=== PATIENT | female | born 1985 | race American Indian/Alaskan Native ===

== ENCOUNTER 2017-08-04 18:39 | Emergency (ER) | payer SELFPAY ==
[2017-08-04 18:51] VITALS: BP 127/70
--- NOTE | 2017-08-04 20:17 | Emergency Department Report ---
Abscess Boil HPI - HPI Chief Complaint: Skin/Abscess/Foreign Body Stated Complaint: LUMP UNDER BREAST Duration: >1 Week Location: Chest (under left breast on bra line) Severity: Moderate History: Yes Pain, No Fever, No Purulent Drainage, No Numbness, No Foreign Body , No Previous History, No Insect Bite HPI: 32-year-old Afro-[place] female comes in for complaint of a lump under her left breast rib area for about 2 months she reports that is progressively getting worse in the last week his Larger and more painful. Patient has not been taking any medication has no past medical history no known drug allergies. Home Medications: Previous Rx's Medication Instructions Recorded Last Taken Type metroNIDAZOLE [Flagyl] 500 mg PO Q12HR #14 tab 02/20/16 Unknown Rx Cephalexin [Keflex] 500 mg PO BID 10 Days #20 capsule 08/04/17 Unknown Rx Ibuprofen 800 mg PO Q8H #30 tablet 08/04/17 Unknown Rx Allergies/Adverse Reactions: Allergies Allergy/AdvReac Type Severity Reaction Status Date / Time No Known Allergies Allergy Verified 08/04/17 18:49 ED Review of Systems ROS: Stated complaint: LUMP UNDER BREAST Other details as noted in HPI Constitutional: denies: chills, fever Eyes: denies: eye pain, eye discharge, vision change ENT: denies: ear pain, throat pain Respiratory: denies: cough, shortness of breath, wheezing Cardiovascular: denies: chest pain, palpitations Endocrine: no symptoms reported Gastrointestinal: denies: abdominal pain, nausea, diarrhea Genitourinary: denies: urgency, dysuria, discharge Musculoskeletal: denies: back pain, joint swelling, arthralgia Skin: lesions Neurological: denies: headache, weakness, paresthesias Psychiatric: denies: anxiety, depression Hematological/Lymphatic: denies: easy bleeding, easy bruising ED Past Medical Hx - Past Medical History Previous Medical History?: No - Surgical History Hx Cholecystectomy: Yes Additional Surgical History: - Social History Smoking Status: Never Smoker Substance Use Type: None - Medications Home Medications: Home Medications Medication Instructions Recorded Confirmed Last Taken Type metroNIDAZOLE [Flagyl] 500 mg PO Q12HR #14 tab 02/20/16 Unknown Rx Cephalexin [Keflex] 500 mg PO BID 10 Days #20 capsule 08/04/17 Unknown Rx Ibuprofen 800 mg PO Q8H #30 tablet 08/04/17 Unknown Rx ED Abscess Boil Physical Exam - Exam General: Vital signs noted. No distress. Alert and acting appropriately. Size: 2 cm Exam: Yes Tenderness, Yes Normal Neurologic Exam, Yes Normal Circulation, No Fluctuance, No Surrounding Cellulites/Erythema, No Lymphangitis, No Crepitation , No Heart Murmur ED Course Vital Signs 08/04/17 18:49 Temperature 98.1 F Pulse Rate 61 Respiratory 18 Rate Blood Pressure 127/70 O2 Sat by Pulse 96 Oximetry Critical care attestation.: If time is entered above; I have spent that time in minutes in the direct care of this critically ill patient, excluding procedure time. ED Medical Decision Making - Medical Decision Making Patient has been evaluated by this provider fast track. Discussed the patient that it appears to be an abscess but not ready to be incision and drained at this time. Discussed the patient to place warm compresses every 20 minutes of every hour period and take antibiotics as prescribed. Follow up with her primary care provider or emergency room if abscess gets worse. Patient verbalized understanding ED Disposition Clinical Impression: Abscess Disposition: DC-01 TO HOME OR SELFCARE Is pt being admited?: No Does the pt Need Aspirin: No Condition: Stable Instructions: Abscess (ED) Additional Instructions: The antibiotics as prescribed take pain medication as needed follow-up which her primary care provider. Prescriptions: Cephalexin [Keflex] 500 mg PO BID 10 Days #20 capsule Ibuprofen 800 mg PO Q8H #30 tablet Referrals: LEWIS WISE MD [Primary Care Provider] - 3-5 Days Forms: Work/School Release Form(ED)
== END 2017-08-04 20:32 | disposition home or self-care (01) ==
LOC: ED 18:39
DX: L02.213 Cutaneous abscess of chest wall (principal)
CPT/HCPCS: 99282

== ENCOUNTER 2017-08-12 19:13 | Emergency (ER) | payer SELFPAY ==
[2017-08-12 19:49] VITALS: BP 116/66
--- NOTE | 2017-08-12 23:15 | Emergency Department Report ---
- General Chief complaint: Skin/Abscess/Foreign Body Stated complaint: PAIN ON SIDE/ABSCESS Time Seen by Provider: 08/12/17 22:14 Source: patient Mode of arrival: Ambulatory Limitations: No Limitations - History of Present Illness Initial comments: 32-year-old female past medical history none presents with complaint of infected cyst in the left breast. Has been ongoing for approximately 3-4 days. Small approximately the size of an acorn as per patient. Denies fevers or chills. Patient awake alert and oriented 3. Does not involve the breast as per patient MD complaint: abscess/boil Onset/Timin -: days(s) Tetanus Up to Date: yes Severity: moderate Severity scale (0 -10): 5 Quality: aching Consistency: intermittent Worsens with: none Context: none Associated symptoms: denies other symptoms Treatments Prior to Arrival: none - Related Data Previous Rx's Medication Instructions Recorded Last Taken Type metroNIDAZOLE [Flagyl] 500 mg PO Q12HR #14 tab 02/20/16 Unknown Rx Cephalexin [Keflex] 500 mg PO BID 10 Days #20 capsule 08/04/17 Unknown Rx Ibuprofen 800 mg PO Q8H #30 tablet 08/04/17 Unknown Rx Cephalexin [Keflex] 500 mg PO Q12HR #14 cap 08/12/17 Unknown Rx Ibuprofen [Motrin] 600 mg PO Q8H PRN #30 tablet 08/12/17 Unknown Rx Sulfamethoxazole/Trimethoprim 1 each PO BID #14 tablet 08/12/17 Unknown Rx [Bactrim DS TAB] Allergies Allergy/AdvReac Type Severity Reaction Status Date / Time No Known Allergies Allergy Verified 08/04/17 18:49 Abscess Boil HPI - HPI Chief Complaint: Skin/Abscess/Foreign Body Stated Complaint: PAIN ON SIDE/ABSCESS Time Seen by Provider: 08/12/17 22:14 Home Medications: Previous Rx's Medication Instructions Recorded Last Taken Type metroNIDAZOLE [Flagyl] 500 mg PO Q12HR #14 tab 02/20/16 Unknown Rx Cephalexin [Keflex] 500 mg PO BID 10 Days #20 capsule 08/04/17 Unknown Rx Ibuprofen 800 mg PO Q8H #30 tablet 08/04/17 Unknown Rx Cephalexin [Keflex] 500 mg PO Q12HR #14 cap 08/12/17 Unknown Rx Ibuprofen [Motrin] 600 mg PO Q8H PRN #30 tablet 08/12/17 Unknown Rx Sulfamethoxazole/Trimethoprim 1 each PO BID #14 tablet 08/12/17 Unknown Rx [Bactrim DS TAB] Allergies/Adverse Reactions: Allergies Allergy/AdvReac Type Severity Reaction Status Date / Time No Known Allergies Allergy Verified 08/04/17 18:49 ED Review of Systems ROS: Stated complaint: PAIN ON SIDE/ABSCESS Other details as noted in HPI Constitutional: denies: chills, fever Eyes: denies: eye pain, eye discharge, vision change ENT: denies: ear pain, throat pain Respiratory: denies: cough, shortness of breath, wheezing Cardiovascular: denies: chest pain, palpitations Endocrine: no symptoms reported Gastrointestinal: denies: abdominal pain, nausea, diarrhea Genitourinary: denies: urgency, dysuria, discharge Musculoskeletal: denies: back pain, joint swelling, arthralgia Skin: as per HPI. denies: rash, lesions Neurological: denies: headache, weakness, paresthesias Psychiatric: denies: anxiety, depression Hematological/Lymphatic: denies: easy bleeding, easy bruising ED Past Medical Hx - Past Medical History Previous Medical History?: No - Surgical History Hx Cholecystectomy: Yes Additional Surgical History: - Social History Smoking Status: Current Every Day Smoker Substance Use Type: Alcohol - Medications Home Medications: Home Medications Medication Instructions Recorded Confirmed Last Taken Type metroNIDAZOLE [Flagyl] 500 mg PO Q12HR #14 tab 02/20/16 Unknown Rx Cephalexin [Keflex] 500 mg PO BID 10 Days #20 capsule 08/04/17 Unknown Rx Ibuprofen 800 mg PO Q8H #30 tablet 08/04/17 Unknown Rx Cephalexin [Keflex] 500 mg PO Q12HR #14 cap 08/12/17 Unknown Rx Ibuprofen [Motrin] 600 mg PO Q8H PRN #30 tablet 08/12/17 Unknown Rx Sulfamethoxazole/Trimethoprim 1 each PO BID #14 tablet 08/12/17 Unknown Rx [Bactrim DS TAB] ED Physical Exam - General Limitations: No Limitations General appearance: alert, in no apparent distress - Head Head exam: Present: atraumatic, normocephalic - Eye Eye exam: Present: normal appearance, PERRL, EOMI - ENT ENT exam: Present: mucous membranes moist - Neck Neck exam: Present: normal inspection - Respiratory Respiratory exam: Present: normal lung sounds bilaterally. Absent: respiratory distress - Cardiovascular Cardiovascular Exam: Present: regular rate, normal rhythm. Absent: systolic murmur, diastolic murmur, rubs, gallop - GI/Abdominal GI/Abdominal exam: Present: soft, normal bowel sounds - Extremities Exam Extremities exam: Present: normal inspection - Back Exam Back exam: Present: normal inspection - Neurological Exam Neurological exam: Present: alert, oriented X3, CN II-XII intact, normal gait - Psychiatric Psychiatric exam: Present: normal affect, normal mood - Skin Skin exam: Present: warm, dry, intact, normal color. Absent: rash - Expanded Skin Exam Expanded Type of lesion: Present: abscess Distribution of rash: thorax Description of rash: Present: size (3 cm diameter) 1 - Small abscess here ED Course Vital Signs 08/12/17 19:45 Temperature 98.6 F Pulse Rate 67 Respiratory 16 Rate Blood Pressure 116/66 O2 Sat by Pulse 100 Oximetry - I & D Anterior Chest Type of Procedure: Simple Site: left anterior upper thorax Blade Size: 11 I & D Procedure: betadine prep Progress: Area is infiltrated with lidocaine 2% without epinephrine. Good local anesthesia achieved. Single horizontal stab incision made. Tiny amount of purulent drainage with sebaceous material. Significant decompression achieved. 2 inches of iodoform gauze placed in wound after irrigation and probing. Procedure tolerated well with minimal bleeding. Covered with 4 x 4 gauze afterward. ED Medical Decision Making - Medical Decision Making A/P: Abscess, infected sebaceous cyst 1-incised and drained, wound culture sent. No clinical involvement of breast upon examination, abscess is overlying ribs below breast left upper quadrant 2-Bactrim and Keflex twice a day 7 days, short course of analgesics 3-I advised patient to return to the ED for any fevers or chills or reaccumulation of abscess 4- follow-up with primary care and dermatology Critical care attestation.: If time is entered above; I have spent that time in minutes in the direct care of this critically ill patient, excluding procedure time. ED Disposition Clinical Impression: Abscess, Infected sebaceous cyst Disposition: [id number]/TX-[id number] PS[facility] HOSP/PSY UNIT Is pt being admited?: No Does the pt Need Aspirin: No Condition: Stable Instructions: Abscess (ED), Abscess Incision and Drainage (ED) Prescriptions: Cephalexin [Keflex] 500 mg PO Q12HR #14 cap Ibuprofen [Motrin] 600 mg PO Q8H PRN #30 tablet PRN Reason: Pain Sulfamethoxazole/Trimethoprim [Bactrim DS TAB] 1 each PO BID #14 tablet Referrals: [facility] [Provider Group] - 3-5 Days Forms: Accompanied Note, Work/School Release Form(ED) Time of Disposition: 23:55
== END 2017-08-13 00:24 ==
LOC: ED 19:13
DX: L02.213 Cutaneous abscess of chest wall (principal); L72.3 Sebaceous cyst

== ENCOUNTER 2020-05-01 05:57 | Emergency (ER) | payer BC ==
[2020-05-01] MEDS ORDERED: SODIUM CHLORIDE 0.9% 1000 ML 1,000 ML IV ONE (06:23)
[2020-05-01] MEDS ORDERED: ONDANSETRON 4 MG/2 ML INJ IV ONE (06:23)
[2020-05-01 06:24] LABS: Bilirubin,Urine NEG (Negative); Blood,Urine SM (Negative); Color,Urine Yellow (Yellow); Mucus,Urine FEW /HPF; Protein,Urine <15 mg/dL mg/dL (Negative); RBC,Urine < 1.0 /HPF (0.0-6.0)
[2020-05-01 06:32] LABS: Hematocrit 40.4 % (30.3-42.9); Hemoglobin 13.5 gm/dl (10.1-14.3); Mean Corpuscular HGB Conc 34 % (30-34); Mean Corpuscular Volume 99 fl (79-97); Platelet Count 223 K/mm3 (140-440); Red Blood Count 4.06 M/mm3 (3.65-5.03); Red Cell Distribution Width 13.8 % (13.2-15.2)
[2020-05-01 06:45] LABS: Alanine Aminotransferase 13 units/L (7-56); Albumin 3.6 g/dL (3.9-5); Blood Urea Nitrogen 11 mg/dL (7-17); Calcium 8.8 mg/dL (8.4-10.2); Hemolysis Index 16
[2020-05-01 06:46] LABS: BUN/Creatinine Ratio 18
--- NOTE | 2020-05-01 06:51 | Emergency Department Report ---
HPI - General Chief Complaint: Abdominal Pain Time Seen by Provider: 05/01/20 06:46 - HPI HPI: This is a 35-year-old female presents to the emergency department with complaint of right-sided abdominal and right flank pain that is been going on for the past week but has greatly worsened over the last few days. She denies any nausea, vomiting, fever, vaginal bleeding or discharge, dysuria, diarrhea or constipation. Patient has been taking some [place] for her pain without much relief. Currently she is 8 out of 10 in intensity. It is a sharp pain. No known aggravating or alleviating factors. She does not have a primary care physician. No recent travel or sick contacts at home. She has a previous surgical history of a cholecystectomy and . ED Past Medical Hx - Past Medical History Previous Medical History?: No - Surgical History Past Surgical History?: Yes Hx Cholecystectomy: Yes Additional Surgical History: - Social History Smoking Status: Current Every Day Smoker Substance Use Type: None - Medications Home Medications: Home Medications Medication Instructions Recorded Confirmed Last Taken Type metroNIDAZOLE [Flagyl] 500 mg PO Q12HR #14 tab 02/20/16 Unknown Rx Cephalexin [Keflex] 500 mg PO BID 10 Days #20 capsule 08/04/17 Unknown Rx Ibuprofen [Ibuprofen 800] 800 mg PO Q8H #30 tablet 08/04/17 Unknown Rx Ibuprofen [Motrin] 600 mg PO Q8H PRN #30 tablet 08/12/17 Unknown Rx Sulfamethoxazole/Trimethoprim 1 each PO BID #14 tablet 08/12/17 Unknown Rx [Bactrim DS TAB] cephALEXin [Keflex] 500 mg PO Q12HR #14 cap 08/12/17 Unknown Rx DOXYCYCLINE Hyclate [Vibramycin 100 mg PO Q12HR #20 capsule 05/01/20 Unknown Rx CAP] HYDROcodone/APAP 5-325 [[place] 1 each PO Q6HR PRN #12 tablet 05/01/20 Unknown Rx 5/325] ED Review of Systems ROS: Stated complaint: STOMACH/SIDE PAIN Other details as noted in HPI Comment: All other systems reviewed and negative Constitutional: denies: chills, fever Eyes: denies: eye pain, vision change ENT: denies: ear pain, throat pain Respiratory: denies: cough, shortness of breath Cardiovascular: denies: chest pain, palpitations Gastrointestinal: abdominal pain. denies: nausea, vomiting Genitourinary: denies: dysuria, discharge Musculoskeletal: denies: back pain, arthralgia Skin: denies: rash, lesions Neurological: denies: headache, weakness Physical Exam - Physical Exam Vital Signs: Vital Signs 05/01/20 06:01 Temperature 98.3 F Pulse Rate 95 H Respiratory 18 Rate Blood Pressure 133/83 O2 Sat by Pulse 96 Oximetry Physical Exam: GENERAL: The patient is well-developed well-nourished. HENT: Normocephalic. Atraumatic. Patient has moist mucous membranes. EYES: Extraocular motions are intact. NECK: Supple. Trachea is midline. CHEST/LUNGS: Clear to auscultation. There is no respiratory distress noted. HEART/CARDIOVASCULAR: Regular. There is no tachycardia. ABDOMEN: Abdomen is soft. Right middle and lower quadrant is tender to palpation. No guarding. Patient has normal bowel sounds. There is no abdominal distention. SKIN: Skin is warm and dry. NEURO: The patient is awake, alert, and oriented. The patient is cooperative. The patient has no focal neurologic deficits. Normal speech. MUSCULOSKELETAL: There is no tenderness or deformity. There is no limitation range of motion. BACK: No CVA tenderness to palpation. ED Course Vital Signs 05/01/20 06:01 Temperature 98.3 F Pulse Rate 95 H Respiratory 18 Rate Blood Pressure 133/83 O2 Sat by Pulse 96 Oximetry - Reevaluation(s) Reevaluation #1: 05/01/20 12:57 Lab Results 05/01/20 05/01/20 05/01/20 Range/Units 06:00 06:00 06:14 WBC 22.0 H (4.5-11.0) K/mm3 RBC 4.06 (3.65-5.03) M/mm3 Hgb 13.5 (10.1-14.3) gm/dl Hct 40.4 (30.3-42.9) % MCV 99 H (79-97) fl MCH 33 H (28-32) pg MCHC 34 (30-34) % RDW 13.8 (13.2-15.2) % Plt Count 223 (140-440) K/mm3 Add Manual Diff Complete Total Counted 100 Seg Neuts % (Manual) 81.0 H (40.0-70.0) % Band Neutrophils % 3.0 % Lymphocytes % (Manual) 7.0 L (13.4-35.0) % Reactive Lymphs % (Man) 0 % Monocytes % (Manual) 9.0 H (0.0-7.3) % Eosinophils % (Manual) 0 (0.0-4.3) % Basophils % (Manual) 0 (0.0-1.8) % Metamyelocytes % 0 % Myelocytes % 0 % Promyelocytes % 0 % Blast Cells % 0 % Nucleated RBC % Not Reportable Seg Neutrophils # Man 17.8 H (1.8-7.7) K/mm3 Band Neutrophils # 0.7 K/mm3 Lymphocytes # (Manual) 1.5 (1.2-5.4) K/mm3 Abs React Lymphs (Man) 0.0 K/mm3 Monocytes # (Manual) 2.0 H (0.0-0.8) K/mm3 Eosinophils # (Manual) 0.0 (0.0-0.4) K/mm3 Basophils # (Manual) 0.0 (0.0-0.1) K/mm3 Metamyelocytes # 0.0 K/mm3 Myelocytes # 0.0 K/mm3 Promyelocytes # 0.0 K/mm3 Blast Cells # 0.0 K/mm3 WBC Morphology Not Reportable Hypersegmented Neuts Not Reportable Hyposegmented Neuts Not Reportable Hypogranular Neuts Not Reportable Smudge Cells Not Reportable Toxic Granulation Not Reportable Toxic Vacuolation Not Reportable Dohle Bodies Not Reportable Pelger-Huet Anomaly Not Reportable Ronnie Rods Not Reportable Platelet Estimate R Clumped Platelets Not Reportable Plt Clumps, EDTA Not Reportable Large Platelets Not Reportable Giant Platelets Not Reportable Platelet Satelliting Not Reportable Plt Morphology Comment Not Reportable RBC Morphology Normal Dimorphic RBCs Not Reportable Polychromasia Not Reportable Hypochromasia Not Reportable Poikilocytosis Not Reportable Anisocytosis Not Reportable Microcytosis Not Reportable Macrocytosis Not Reportable Spherocytes Not Reportable Pappenheimer Bodies Not Reportable Sickle Cells Not Reportable Target Cells Not Reportable Tear Drop Cells Not Reportable Ovalocytes Not Reportable Helmet Cells Not Reportable Gerard-[place] Bodies Not Reportable [place] Rings Not Reportable [place] Cells Not Reportable Bite Cells Not Reportable Crenated Cell Not Reportable Elliptocytes Not Reportable Acanthocytes (Spur) Not Reportable Rouleaux Not Reportable Hemoglobin C Crystals Not Reportable Schistocytes Not Reportable Malaria parasites Not Reportable Evangelista Bodies Not Reportable Hem Pathologist Commnt No Sodium 136 L (137-145) mmol/L Potassium 4.1 (3.6-5.0) mmol/L Chloride 100.1 (98-107) mmol/L Carbon Dioxide 23 (22-30) mmol/L Anion Gap 17 mmol/L BUN 11 (7-17) mg/dL Creatinine 0.6 (0.6-1.2) mg/dL Estimated GFR > 60 ml/min BUN/Creatinine Ratio 18 % Glucose 118 H (65-100) mg/dL Calcium 8.8 (8.4-10.2) mg/dL Total Bilirubin 0.40 (0.1-1.2) mg/dL AST 13 (5-40) units/L ALT 13 (7-56) units/L Alkaline Phosphatase 76 (35-129) units/L Total Protein 7.1 (6.3-8.2) g/dL Albumin 3.6 L (3.9-5) g/dL Albumin/Globulin Ratio 1.0 % HCG, Qual (Negative) Urine Color Yellow (Yellow) Urine Turbidity Clear (Clear) Urine pH 9.0 H (5.0-7.0) Ur Specific [place] 1.021 (1.003-1.030) Urine Protein <15 mg/dl (Negative) mg/dL Urine Glucose (UA) Neg (Negative) mg/dL Urine Ketones Neg (Negative) mg/dL Urine Blood Sm (Negative) Urine Nitrite Neg (Negative) Urine Bilirubin Neg (Negative) Urine Urobilinogen 2.0 (<2.0) mg/dL Ur Leukocyte Esterase Tr (Negative) Urine WBC (Auto) 2.0 (0.0-6.0) /HPF Urine RBC (Auto) < 1.0 (0.0-6.0) /HPF U Epithel Cells (Auto) 1.0 (0-13.0) /HPF Urine Mucus Few /HPF 10/30/20 Range/Units Unknown WBC (4.5-11.0) K/mm3 RBC (3.65-5.03) M/mm3 Hgb (10.1-14.3) gm/dl Hct (30.3-42.9) % MCV (79-97) fl MCH (28-32) pg MCHC (30-34) % RDW (13.2-15.2) % Plt Count (140-440) K/mm3 Add Manual Diff Total Counted Seg Neuts % (Manual) (40.0-70.0) % Band Neutrophils % % Lymphocytes % (Manual) (13.4-35.0) % Reactive Lymphs % (Man) % Monocytes % (Manual) (0.0-7.3) % Eosinophils % (Manual) (0.0-4.3) % Basophils % (Manual) (0.0-1.8) % Metamyelocytes % % Myelocytes % % Promyelocytes % % Blast Cells % % Nucleated RBC % Seg Neutrophils # Man (1.8-7.7) K/mm3 Band Neutrophils # K/mm3 Lymphocytes # (Manual) (1.2-5.4) K/mm3 Abs React Lymphs (Man) K/mm3 Monocytes # (Manual) (0.0-0.8) K/mm3 Eosinophils # (Manual) (0.0-0.4) K/mm3 Basophils # (Manual) (0.0-0.1) K/mm3 Metamyelocytes # K/mm3 Myelocytes # K/mm3 Promyelocytes # K/mm3 Blast Cells # K/mm3 WBC Morphology Hypersegmented Neuts Hyposegmented Neuts Hypogranular Neuts Smudge Cells Toxic Granulation Toxic Vacuolation Dohle Bodies Pelger-Huet Anomaly Ronnie Rods Platelet Estimate Clumped Platelets Plt Clumps, EDTA Large Platelets Giant Platelets Platelet Satelliting Plt Morphology Comment RBC Morphology Dimorphic RBCs Polychromasia Hypochromasia Poikilocytosis Anisocytosis Microcytosis Macrocytosis Spherocytes Pappenheimer Bodies Sickle Cells Target Cells Tear Drop Cells Ovalocytes Helmet Cells Gerard-[place] Bodies [place] Rings [place] Cells Bite Cells Crenated Cell Elliptocytes Acanthocytes (Spur) Rouleaux Hemoglobin C Crystals Schistocytes Malaria parasites Evangelista Bodies Hem Pathologist Commnt Sodium (137-145) mmol/L Potassium (3.6-5.0) mmol/L Chloride (98-107) mmol/L Carbon Dioxide (22-30) mmol/L Anion Gap mmol/L BUN (7-17) mg/dL Creatinine (0.6-1.2) mg/dL Estimated GFR ml/min BUN/Creatinine Ratio % Glucose (65-100) mg/dL Calcium (8.4-10.2) mg/dL Total Bilirubin (0.1-1.2) mg/dL AST (5-40) units/L ALT (7-56) units/L Alkaline Phosphatase (35-129) units/L Total Protein (6.3-8.2) g/dL Albumin (3.9-5) g/dL Albumin/Globulin Ratio % HCG, Qual Negative (Negative) Urine Color (Yellow) Urine Turbidity (Clear) Urine pH (5.0-7.0) Ur Specific [place] (1.003-1.030) Urine Protein (Negative) mg/dL Urine Glucose (UA) (Negative) mg/dL Urine Ketones (Negative) mg/dL Urine Blood (Negative) Urine Nitrite (Negative) Urine Bilirubin (Negative) Urine Urobilinogen (<2.0) mg/dL Ur Leukocyte Esterase (Negative) Urine WBC (Auto) (0.0-6.0) /HPF Urine RBC (Auto) (0.0-6.0) /HPF U Epithel Cells (Auto) (0-13.0) /HPF Urine Mucus /HPF ED Medical Decision Making - Lab Data Result diagrams: 05/01/20 06:00 05/01/20 06:00 - Radiology Data Radiology results: report reviewed ULTRASOUND PELVIS DUPLEX DOPPLER COMPLETE INDICATION / CLINICAL INFORMATION: pelvic pain. TECHNIQUE: Transabdominal. Duplex Color Doppler used: Yes. MELISSA RISON: CT abdomen pelvis with contrast performed earlier today FINDINGS: The uterus is anteverted measuring 9.6 x 4.9 x 4.3 cm. No uterine mass. The endometrial stripe is homogeneous and measures 4-5 mm in thickness. The left ovary is normal size, contour and echotexture measuring 3.1 x 2.6 x 1.8 cm. Normal flow on spectral Doppler imaging. I do not clearly see a normal-appearing right ovary containing follicles. There is a complex right adnexal masslike lesion with minimal cystic change measuring 6.0 x 4.0 x 4.0 cm. When correlating with CT, there is suggestion of mild right hydrosalpinx. Spectral Doppler waveforms demonstrate arterial flow to this lesion. Small free pelvic fluid is noted. IMPRESSION: Normal uterus, endometrium and left ovary. Complex right adnexal lesion as described above. I do not confidently see ovarian tissue on ultrasound. When correlating with CT, I think PID should be considered. Please correlate with the patient's clinical presentation. CT ABDOMEN AND PELVIS WITH CONTRAST INDICATION / CLINICAL INFORMATION: MAIN. Abdominal pain TECHNIQUE: Axial CT images were obtained through the abdomen and pelvis after IV contrast. All CT scans at this location are performed using CT dose reduction for ALARA by means of automated exposure control. COMPARISON: None available. FINDINGS: LOWER CHEST: No significant abnormality. LIVER: No significant abnormality. GALLBLADDER: Cholecystectomy. BILE DUCTS: No significant abnormality. PANCREAS: No significant abnormality. SPLEEN: Small splenule is noted. ADRENALS: No significant abnormality. RIGHT KIDNEY / URETER: No significant abnormality. LEFT KIDNEY / URETER: No significant abnormality. STOMACH / SMALL BOWEL: No significant abnormality. COLON: No significant abnormality. APPENDIX: No significant abnormality. PERITONEUM: Small volume complex free fluid noted in the pelvis (HU 30). No free air. LYMPH NODES: No significant adenopathy. AORTA / ARTERIES: No significant abnormality. IVC / VEINS: No significant abnormality. URINARY BLADDER: No significant abnormality. REPRODUCTIVE ORGANS: Physiologic changes are noted of the uterus. There is a complex right adnexal cyst measuring 4.8 x 3.6 cm. Simple left ovarian cyst measures 2.3 cm. ADDITIONAL FINDINGS: None. SKELETAL SYSTEM: No significant abnormality. IMPRESSION: 1. Complex right adnexal cyst measures 4.8 x 3.6 cm with associated small volume complex fluid in the pelvis. This likely represents a ruptured hemorrhagic ovarian cyst. Dedicated pelvic ultrasound would be helpful for further catheterization. 2. Cholecystectomy. - Medical Decision Making This patient presents to the emergency department with a complaint of a 1 week history of lower abdominal and/or pelvic pain. On examination the patient has some reproducible tenderness to palpation but the abdomen is soft, nondistended and nontoxic in appearance. Patient's labs have been mostly unremarkable except for a 22,000 white blood cell count. No urinary tract infection and the patient is not . Given the abdominal and pelvic pain, as well as the leukocytosis, a CT scan of the abdomen and pelvis with IV contrast was performed. It showed what appeared to be a ruptured hemorrhagic cyst but radiology made the recommendation of getting a pelvic ultrasound for further differentiation. The transvaginal/Doppler pelvic ultrasound was done that showed a fluid collection in the right adnexa concerning for a hydrosalpinx. This may be consistent with PID. Her vital signs have been reassuring throughout her ED course. She was given a dose of IV analgesia with some improvement. The patient will be discharged home with pain medication and doxycycline and has been given multiple referrals for [facility]. She will return to the emergency department with any worsening of her symptoms or with any acute distress. Critical Care Time: No Critical care attestation.: If time is entered above; I have spent that time in minutes in the direct care of this critically ill patient, excluding procedure time. ED Disposition Clinical Impression: Hydrosalpinx, PID (acute pelvic inflammatory disease) Ovarian cyst Qualifiers: Laterality: right Qualified Code(s): N83.201 - Unspecified ovarian cyst, right side Disposition: TO HOME OR SELFCARE Is pt being admited?: No Condition: Stable Instructions: Pelvic Inflammatory Disease (ED), Abdominal Pain (ED) Additional Instructions: Please follow-up with an [facility] in the next few days. You have been prescribed a medication that is sedating and therefore should not be taken prior to driving, working, and responsible for children and in no way should be mixed with alcohol of any quantity. Return to the emergency department with any worsening of your symptoms, new or concerning symptoms not addressed during this current emergency department visit, or with any acute distress. Prescriptions: HYDROcodone/APAP 5-325 [[place] 5/325] 1 each PO Q6HR PRN #12 tablet PRN Reason: Pain DOXYCYCLINE Hyclate [Vibramycin CAP] 100 mg PO Q12HR #20 capsule Referrals: PRIMARY CAREMD [Primary Care Provider] - 2-3 Days [facility] [Provider Group] - 2-3 Days [facility] [Provider Group] - 2-3 Days [facility] [Provider Group] - 2-3 Days Time of Disposition: 11:04
[2020-05-01 07:40] LABS: Basophils % (Manual) 0 % (0.0-1.8); Total Cells Counted 100
[2020-05-01 07:41] LABS: Band Neutrophils # (Manual) 0.7 K/mm3; Eosinophils % (Manual) 0 % (0.0-4.3); Platelet Estimate R; RBC Morphology Normal
[2020-05-01] MEDS ORDERED: MORPHINE 4 MG/1 ML INJ IV ONE (07:58)
--- NOTE | 2020-05-01 08:44 | Cat Scan Report ---
CT ABDOMEN AND PELVIS WITH CONTRAST INDICATION / CLINICAL INFORMATION: MAIN. Abdominal pain TECHNIQUE: Axial CT images were obtained through the abdomen and pelvis after IV contrast. All CT scans at this location are performed using CT dose reduction for ALARA by means of automated exposure control. COMPARISON: None available. FINDINGS: LOWER CHEST: No significant abnormality. LIVER: No significant abnormality. GALLBLADDER: Cholecystectomy. BILE DUCTS: No significant abnormality. PANCREAS: No significant abnormality. SPLEEN: Small splenule is noted. ADRENALS: No significant abnormality. RIGHT KIDNEY / URETER: No significant abnormality. LEFT KIDNEY / URETER: No significant abnormality. STOMACH / SMALL BOWEL: No significant abnormality. COLON: No significant abnormality. APPENDIX: No significant abnormality. PERITONEUM: Small volume complex free fluid noted in the pelvis (HU 30). No free air. LYMPH NODES: No significant adenopathy. AORTA / ARTERIES: No significant abnormality. IVC / VEINS: No significant abnormality. URINARY BLADDER: No significant abnormality. REPRODUCTIVE ORGANS: Physiologic changes are noted of the uterus. There is a complex right adnexal cy st measuring 4.8 x 3.6 cm. Simple left ovarian cyst measures 2.3 cm. ADDITIONAL FINDINGS: None. SKELETAL SYSTEM: No significant abnormality. IMPRESSION: 1. Complex right adnexal cyst measures 4.8 x 3.6 cm with associated small volume complex fluid in the pelvis. This likely represents a ruptured hemorrhagic ovarian cyst. Dedicated pelvic ultrasound woul d be helpful for further catheterization. 2. Cholecystectomy. Signer Name: Fran Retana MD Signed: 05/01/2020 8:39 AM Workstation Name: [id number]
--- NOTE | 2020-05-01 10:37 | Ultrasound Report ---
ULTRASOUND PELVIS DUPLEX DOPPLER COMPLETE INDICATION / CLINICAL INFORMATION: pelvic pain. TECHNIQUE: Transabdominal. Duplex Color Doppler used: Yes. COMPARISON: CT abdomen pelvis with contrast performed earlier today FINDINGS: The uterus is anteverted measuring 9.6 x 4.9 x 4.3 cm. No uterine mass. The endometrial stripe is angélica ogeneous and measures 4-5 mm in thickness. The left ovary is normal size, contour and echotexture measuring 3.1 x 2.6 x 1.8 cm. Normal flow on s pectral Doppler imaging. I do not clearly see a normal-appearing right ovary containing follicles. There is a complex right ad nexal masslike lesion with minimal cystic change measuring 6.0 x 4.0 x 4.0 cm. When correlating with CT, there is suggestion of mild right hydrosalpinx. Spectral Doppler waveforms demonstrate arterial f low to this lesion. Small free pelvic fluid is noted. IMPRESSION: Normal uterus, endometrium and left ovary. Complex right adnexal lesion as described above. I do not confidently see ovarian tissue on ultrasoun d. When correlating with CT, I think PID should be considered. Please correlate with the patient's cl inical presentation. Signer Name: Deniz Braxton Jr, MD Signed: 05/01/2020 10:33 AM Workstation Name: [id number]
[2020-05-01 11:15] VITALS: BP 126/84
== END 2020-05-01 11:13 | disposition home or self-care (01) ==
LOC: ED 05:57
DX: N83.201 Unspecified ovarian cyst, right side (principal); N70.11 Chronic salpingitis; N73.0 Acute parametritis and pelvic cellulitis; F17.200 Nicotine dependence, unspecified, uncomplicated; Z90.49 Acquired absence of other specified parts of digestive tract; Z98.890 Other specified postprocedural states; Z79.1 Long term (current) use of non-steroidal anti-inflammatories (NSAID); Z79.899 Other long term (current) drug therapy
CPT/HCPCS: 36415; 74177; 80053; 81001; 84703; 85007; 85025; 93975; 96361; 96374; 96375; 99284; J2270; J2405; J7030; Q9967